=== PATIENT | female | born 1950 | race Caucasian/White ===

== ENCOUNTER 2017-05-11 21:32 | Observation (INO) | payer MEDICARE, OTHER ==
[2017-05-11] MEDS ORDERED: SODIUM CHLORIDE 0.9% 1,000 ML IV STA (22:21)
[2017-05-11] MEDS ORDERED: ONDANSETRON 4 MG/2 ML VIAL IVP STA (22:21)
[2017-05-11] MEDS ORDERED: MORPHINE SULFATE 4 MG/ML SYRINGE IVP STA (22:21)
--- NOTE | 2017-05-11 22:28 | ED ---
Abdominal Pain HPI - General Chief Complaint: Abdominal Pain Stated Complaint: abdominal pain Time Seen by Provider: 05/11/17 22:10 Source: patient Mode of arrival: ambulatory Limitations: no limitations - History of Present Illness Initial Comments: 66-year-old female patient presents to the emergency department today for evaluation of upper abdominal pain and vomiting. Patient does have memory impairment and relies on don't want to provide history. Daughter reports that she has been having diarrhea on and off for the last 6 months. States that she started complaining of the upper abdominal pain approximately a week and a half ago. Patient reports that the pain is in her midepigastric region. States that she attempted to eat today and was started vomiting. States that she's been unable to hold down any food or fluids. She denies radiation of the pain into her back. Denies any constipation or current diarrhea. She denies any known fevers but states that she has been chilled. Patient denies any recent rash, shortness breath, chest pain, back pain, numbness, tingling, dizziness, weakness, hematuria, dysuria, urinary urgency, urinary frequency, headache, visual changes, or any other complaints. - Related Data Home Medications Medication Instructions Recorded Confirmed Doxycycline Hyclate [Vibramycin] 100 mg PO BID 05/11/17 05/11/17 Fluticasone Nasal [place] [Flonase 2 spr EA NOSTRIL DAILY 05/11/17 05/11/17 Nasal [place]] Hydrochlorothiazide 12.5mg Tab 12.5 mg PO DAILY 05/11/17 05/11/17 Hydroxychloroquine Sulfate 200 mg PO AC-BID 05/11/17 05/11/17 [Plaquenil] Levothyroxine Sodium [Synthroid] 112 mcg PO DAILY 05/11/17 05/11/17 Vitamin D3(Unknown Dose) 1 tab PO DAILY 05/11/17 05/11/17 azaTHIOprine [Imuran] 50 mg PO TID 05/11/17 05/11/17 Allergies Allergy/AdvReac Type Severity Reaction Status Date / Time Penicillins Allergy Unknown Verified 05/11/17 23:06 Review of Systems ROS Statement: Those systems with pertinent positive or pertinent negative responses have been documented in the HPI. ROS Other: All systems not noted in ROS Statement are negative. Past Medical History Past Medical History: Hypertension, Rheumatoid Arthritis (RA) Additional Past Medical History / Comment(s): Memory difficulty without diagnosis History of Any Multi-Drug Resistant Organisms: None Reported Past Surgical History: Section, Cholecystectomy Past Psychological History: No Psychological Hx Reported Smoking Status: Never smoker Past Alcohol Use History: None Reported Past Drug Use History: None Reported General Exam Limitations: no limitations General appearance: alert, in no apparent distress, other (This is a well- developed, well-nourished elderly female patient in no acute distress. Vital signs upon presentation are temperature 99.1F, pulse 87, respirations 18, blood pressure 121/60, pulse ox 100% on room air.) Eye exam: Present: normal appearance, PERRL, EOMI. Absent: scleral icterus, conjunctival injection, periorbital swelling ENT exam: Present: normal exam, normal oropharynx, mucous membranes moist Respiratory exam: Present: normal lung sounds bilaterally. Absent: respiratory distress, wheezes, rales, rhonchi, stridor Cardiovascular Exam: Present: regular rate, normal rhythm, normal heart sounds. Absent: systolic murmur, diastolic murmur, rubs, gallop, clicks GI/Abdominal exam: Present: soft, tenderness (Midepigastric tenderness), normal bowel sounds. Absent: distended, guarding, rebound, rigid Neurological exam: Present: alert, oriented X3, CN II-XII intact Psychiatric exam: Present: normal affect, normal mood Skin exam: Present: warm, dry, intact, normal color. Absent: rash Course Vital Signs 05/11/17 05/12/17 21:42 03:09 Temperature 99.1 F 97.4 F L Pulse Rate 87 72 Respiratory 18 18 Rate Blood Pressure 121/60 136/66 O2 Sat by Pulse 100 95 Oximetry Medical Decision Making - Medical Decision Making 66 year-old female patient presented to the emergency department today for complaints of upper abdominal pain and vomiting. Patient was unable to keep anything down throughout the day today. Labs reviewed and did reveal low potassium and elevated lipase. We did give patient fluids. She is still feeling poorly. We will admit her for mild pancreatitis, hypokalemia, and intractable nausea and vomiting. IV fluid resuscitation, IV replacement potassium, and nausea medication will be provided. She'll be admitted to Dr. Tracy. - Lab Data Result diagrams: 05/11/17 22:17 05/11/17 22:17 Lab Results 05/11/17 05/11/17 05/11/17 Range/Units 22:17 22:17 22:17 WBC 4.9 (3.8-10.6) k/uL RBC 5.22 (3.80-5.40) m/uL Hgb 15.7 (11.4-16.0) gm/dL Hct 44.3 (34.0-46.0) % MCV 84.9 (80.0-100.0) fL MCH 30.1 (25.0-35.0) pg MCHC 35.4 (31.0-37.0) g/dL RDW 12.9 (11.5-15.5) % Plt Count 232 (150-450) k/uL Neutrophils % 80 % Lymphocytes % 11 % Monocytes % 5 % Eosinophils % 2 % Basophils % 1 % Neutrophils # 4.0 (1.3-7.7) k/uL Lymphocytes # 0.6 L (1.0-4.8) k/uL Monocytes # 0.3 (0-1.0) k/uL Eosinophils # 0.1 (0-0.7) k/uL Basophils # 0.0 (0-0.2) k/uL Sodium 135 L (137-145) mmol/L Potassium 3.1 L (3.5-5.1) mmol/L Chloride 94 L (98-107) mmol/L Carbon Dioxide 26 (22-30) mmol/L Anion Gap 15 mmol/L BUN 13 (7-17) mg/dL Creatinine 0.70 (0.52-1.04) mg/dL Est GFR (CKD-EPI)AfAm >90 (>60 ml/min/1.73 sqM) Est GFR (CKD-EPI)NonAf >90 (>60 ml/min/1.73 sqM) Glucose 115 H (74-99) mg/dL Calcium 9.9 (8.4-10.2) mg/dL Total Bilirubin 1.8 H (0.2-1.3) mg/dL AST 42 H (14-36) U/L ALT 31 (9-52) U/L Alkaline Phosphatase 92 (38-126) U/L Total Protein 8.4 H (6.3-8.2) g/dL Albumin 4.6 (3.5-5.0) g/dL Amylase 42 (30-110) U/L Lipase 531 H (23-300) U/L Urine Color Yellow Urine Appearance Clear (Clear) Urine pH 6.0 (5.0-8.0) Ur Specific [place] 1.014 (1.001-1.035) Urine Protein 2+ H (Negative) Urine Glucose (UA) Negative (Negative) Urine Ketones 1+ H (Negative) Urine Blood Negative (Negative) Urine Nitrite Negative (Negative) Urine Bilirubin Negative (Negative) Urine Urobilinogen <2.0 (<2.0) mg/dL Ur Leukocyte Esterase Negative (Negative) Urine RBC 1 (0-5) /hpf Urine WBC 10 H (0-5) /hpf Cellular Casts 32 (0) /lpf Hyaline Casts 41 H (0-2) /lpf Urine Mucus Many H (None) /hpf - EKG Data -: EKG Interpreted by Me EKG Comments: EKG obtained at 2243 shows normal sinus rhythm with prolonged QT interval. Ventricular rate of 76, FL interval 164, QRS duration 94, QTC 446, QTc 501. No evidence of ST elevation or depression. Disposition Clinical Impression: Pancreatitis, Intractable vomiting, Hypokalemia, Abdominal pain Disposition: ADMITTED IP TO THIS [facility] Condition: Serious Decision to Admit Reason: Admit from EC Decision Date: 05/12/17 Decision Time: 03:37
[2017-05-11 22:50] LABS: Basophils % (A) 1 %; Eosinophils # (A) 0.1 k/uL (0-0.7); Eosinophils % (A) 2 %; HCT 44.3 % (34.0-46.0); HGB 15.7 gm/dL (11.4-16.0); Lymphocytes # (A) 0.6 k/uL (1.0-4.8); Lymphocytes % (A) 11 %; MCH 30.1 pg (25.0-35.0); MCHC 35.4 g/dL (31.0-37.0); MCV 84.9 fL (80.0-100.0); Mean Platelet Volume 7.9; Monocytes # (A) 0.3 k/uL (0-1.0); Monocytes % (A) 5 %; Neutrophils % (A) 80 %; Platelet Count 232 k/uL (150-450); RBC 5.22 m/uL (3.80-5.40); RDW 12.9 % (11.5-15.5); WBC 4.9 k/uL (3.8-10.6)
[2017-05-11 23:04] LABS: ALT 31 U/L (9-52); AST 42 U/L (14-36); Albumin 4.6 g/dL (3.5-5.0); Alkaline Phosphatase 92 U/L (38-126); Amylase 42 U/L (30-110); Anion Gap 15 mmol/L; Blood Urea Nitrogen 13 mg/dL (7-17); Calcium 9.9 mg/dL (8.4-10.2); Carbon Dioxide 26 mmol/L (22-30); Chloride 94 mmol/L (98-107); Glucose 115 mg/dL (74-99); Lipase 531 U/L (23-300); Potassium 3.1 mmol/L (3.5-5.1); Sodium 135 mmol/L (137-145); Total Bilirubin 1.8 mg/dL (0.2-1.3); Total Protein 8.4 g/dL (6.3-8.2)
--- NOTE | 2017-05-11 23:12 | XR ---
EXAMINATION TYPE: XR KUB DATE OF EXAM: 05/11/2017 COMPARISON: NONE HISTORY: Abdominal pain TECHNIQUE: 2 views FINDINGS: There is no sign of intestinal obstruction or pneumoperitoneum. Fecal pattern is normal. Th ere is no evidence of a mass. There are no pathologic calcifications over the kidneys. Lung bases are clear of consolidation. There are clips from cholecystectomy. IMPRESSION: Nonacute abdomen.
[2017-05-11 23:14] LABS: Appearance,Urine Clear (Clear); Bilirubin,Urine Negative (Negative); Blood,Urine Negative (Negative); Cellular Casts,Urine 32 /lpf (0); Color,Urine Yellow; Glucose,Urine (UA) Negative (Negative); Hyaline Casts,Urine 41 /lpf (0-2); Ketones,Urine 1+ (Negative); Leukocyte Esterase,Urine Negative (Negative); Mucus,Urine Many /hpf; Nitrite,Urine Negative (Negative); Protein,Urine 2+ (Negative); RBC,Urine 1 /hpf (0-5); Specific Gravity,Urine 1.014 (1.001-1.035); Urobilinogen,Urine <2.0 mg/dL (<2.0); WBC,Urine 10 /hpf (0-5)
[2017-05-11] MEDS ORDERED: RX INFO: IV CONTRAST WAS GIVEN 1 EACH MISC MISCELLANE PRN (23:50)
--- NOTE | 2017-05-12 01:12 | CT ---
EXAMINATION TYPE: CT abdomen pelvis w con DATE OF EXAM: 05/12/2017 COMPARISON: NONE HISTORY: mid to upper abd pain CT DLP: 538.00 mGycm Automated exposure control for dose reduction was used. TECHNIQUE: Helical acquisition of images was performed from the lung bases through the pelvis. CONTRAST: Performed without Oral Contrast and with IV Contrast, patient injected with 100 mL of Omnipaque 300. FINDINGS: The lung bases are clear of consolidation. There is no pleural effusion. Heart size is normal. There is no pericardial effusion. There are clips from cholecystectomy. Bile ducts are not dilated. Liver shows no focal defect. Spleen and pancreas appear normal. There is no adrenal mass. Kidneys show satisfactory contrast opacification. There is no hydronephrosi s. Ureters are not dilated. Abdominal aorta is atheromatous. Appendix appears normal. There are diver ticula in the descending colon and sigmoid colon. I see no sign of diverticulitis. There is no ascite s. Small bowel appears normal. There is no retroperitoneal adenopathy. There is spondylotic change in the lumbar spine and more severe at L4-5. I see no compression fractur e. There is focal emphysema in the right lower lobe. IMPRESSION: MILD PULMONARY EMPHYSEMA. ATHEROSCLEROTIC VASCULAR DISEASE. NO SIGN OF ACUTE ABDOMEN AND PELVIS. THER E IS COLONIC DIVERTICULOSIS WITHOUT SIGN OF DIVERTICULITIS.
[2017-05-12] MEDS ORDERED: BENZONATATE 100 MG CAP PO STA (02:40)
--- NOTE | 2017-05-12 03:02 | US ---
EXAMINATION TYPE: US abdomen limited DATE OF EXAM: 05/12/2017 COMPARISON: CLINICAL HISTORY: Pain. Pain. GB removed x several years ago. EXAM MEASUREMENTS: Liver Length: 12.7 cm CBD: 0.5 cm CHD: 0.5 cm Right Kidney: 9.8 x 4.1 x 4.2 cm Pancreas: Appears echogenic Liver: wnl Gallbladder: Surgically absent Evidence for sonographic Foley's sign: neg CBD: wnl CHD: wnl Right Kidney: wnl IMPRESSION: Cholecystectomy. No dilated ducts. No free fluid.
[2017-05-12] MEDS ORDERED: MORPHINE SULFATE 4 MG/ML SYRINGE IV PRN (03:26)
[2017-05-12] MEDS ORDERED: NALOXONE 0.4 MG/ML 1 ML VIAL IV PRN (03:26)
[2017-05-12] MEDS ORDERED: Potassium Replacement Protocol 1 EACH MISC MISCELLANE PRN (03:43)
[2017-05-12] MEDS ORDERED: POTASSIUM CHLORIDE 20 MEQ in WATER FOR INJECTION 1 100ML.BAG IVPB SCH (03:45)
[2017-05-12] MEDS ORDERED: POTASSIUM CHLORIDE 10 MEQ in WATER FOR INJECTION 1 100ML.BAG IVPB SCH (04:00)
[2017-05-12] MEDS: SODIUM CHLORIDE 0.9% 1,000 ML IV SCH ×2 (04:21→18:30)
[2017-05-12] MEDS: POTASSIUM CHLORIDE 10 MEQ in SODIUM CHLORIDE 0.9% 100 ML IV SCH ×7 (04:23→12:08)
--- NOTE | 2017-05-12 04:38 | XR ---
EXAM: XR Chest, 2 Views CLINICAL HISTORY: ITS.REASON XR Reason: Pain TECHNIQUE: Frontal and lateral views of the chest. COMPARISON: No relevant prior studies available. FINDINGS: Lungs: Pulmonary hyperexpansion suggesting emphysema. Linear opacity in the lingula may reflect atelectasis, but difficult to exclude active infiltrate. Clinical correlation is advised. Pleural space: Unremarkable. No pneumothorax. Heart: Unremarkable. No cardiomegaly. Mediastinum: Unremarkable. Bones/joints: Chronic posterior right third rib deformity. Mild vertebral endplate spurring. IMPRESSION: Pulmonary hyperexpansion suggesting emphysema. Linear opacity in the lingula may reflect atelectasis, but difficult to exclude active infiltrate. Clinical correlation is advised.
[2017-05-12 05:41] VITALS: BMI 25.2
[2017-05-12 07:13] LABS: Amylase 32 U/L (30-110); Lipase 507 U/L (23-300)
[2017-05-12] MEDS: IPRATROPIUM-ALBUTEROL 3 ML NEB INHALATION SCH ×5 (08:32→19:30)
[2017-05-12 08:52] LABS: ALT 28 U/L (9-52); AST 32 U/L (14-36); Albumin 3.4 g/dL (3.5-5.0); Alkaline Phosphatase 68 U/L (38-126); Anion Gap 10 mmol/L; Blood Urea Nitrogen 11 mg/dL (7-17); Calcium 8.7 mg/dL (8.4-10.2); Carbon Dioxide 25 mmol/L (22-30); Chloride 102 mmol/L (98-107); Glucose 81 mg/dL (74-99); Potassium 3.4 mmol/L (3.5-5.1); Sodium 137 mmol/L (137-145); Total Bilirubin 1.4 mg/dL (0.2-1.3); Total Protein 6.5 g/dL (6.3-8.2)
[2017-05-12] MEDS ORDERED: POTASSIUM CHLORIDE ER 20 MEQ TAB.ER PO STA (14:34)
[2017-05-12 18:11] LABS: ALT 28 U/L (9-52); AST 29 U/L (14-36); Albumin 3.2 g/dL (3.5-5.0); Alkaline Phosphatase 65 U/L (38-126); Anion Gap 9 mmol/L; Blood Urea Nitrogen 9 mg/dL (7-17); Calcium 8.7 mg/dL (8.4-10.2); Carbon Dioxide 25 mmol/L (22-30); Chloride 104 mmol/L (98-107); Glucose 94 mg/dL (74-99); Potassium 3.5 mmol/L (3.5-5.1); Sodium 138 mmol/L (137-145); Total Bilirubin 1.3 mg/dL (0.2-1.3)
--- NOTE | 2017-05-12 18:12 | HP ---
HISTORY AND PHYSICAL CHIEF COMPLAINTS: Abdominal pain and vomiting. HISTORY OF PRESENT ILLNESS: This 66-year-old woman with a past medical history of hypertension, history of rheumatoid arthritis, history of CVA, TIA, being followed by a primary physician in the [facility], has presented with abdominal pain. The patient is also seen by Dr. Melendrez for the rheumatoid arthritis and right wrist pain exacerbation. Currently the patient is complaining of abdominal pain which is felt in the upper part of the abdomen and vomiting, also. Please note patient had a previous cholecystectomy. Patient came into [facility] and was admitted with features of acute pancreatitis, lipase elevated at 531; amylase was normal. The patient also had multiple evaluations, including abdomen and pelvis CT scan, which showed pulmonary emphysema and no evidence of an acute abdomen. Abdominal ultrasound revealed cholecystectomy; no dilated ducts were noted. There is no history of any fever, rigor, chills. No history of headache, loss of consciousness, seizures. PAST MEDICAL HISTORY: 1. History of CVA. 2. Hypertension. 3. History of rheumatoid arthritis. 4. Memory difficulties. HOME MEDICATIONS: 1. Imuran 50 mg p.o. t.i.d. 2. Vitamin D3 one tablet p.o. daily. 3. Synthroid 112 mcg p.o. daily. 4. Plaquenil 200 mg before meals b.i.d. 5. Hydrochlorothiazide 12.5 mg p.o. daily. 6. Fluticasone 2 sprays daily. 7. Doxycycline 100 mg p.o. b.i.d. ALLERGIES: PENICILLIN. FAMILY HISTORY: History of cancer, cirrhosis and liver cancer. SOCIAL HISTORY: No history of smoking. No history of alcohol intake. REVIEW OF SYSTEMS: ENT: No diminished hearing. No diminished vision. CARDIOVASCULAR SYSTEM: No angina, palpitations. RESPIRATORY SYSTEM: As mentioned earlier. GI: No nausea, vomiting. : No dysuria or retention. NERVOUS SYSTEM: No numbness, weakness. ALLERGY/IMMUNOLOGY: No asthma, hayfever. MUSCULOSKELETAL: As mentioned earlier. HEMATOLOGY/ONCOLOGY: No history of anemia. ENDOCRINE: As mentioned earlier. CONSTITUTIONAL: As mentioned earlier. DERMATOLOGY: Negative. RHEUMATOLOGY: Negative. PSYCHIATRY: As mentioned earlier. PHYSICAL EXAMINATION: Patient is alert, oriented x3. Pulse is 63, blood pressure 100/54, respiration 20, temperature 98 degrees, pulse ox 97% on room air. HEENT: Conjunctivae normal. NECK: No jugular venous distention. CARDIOVASCULAR SYSTEM: S1, S2 muffled. RESPIRATORY SYSTEM: Breath sounds diminished at the bases. No rhonchi. No crackles. ABDOMEN: Soft. Mild diffuse tenderness in the epigastrium present. No guarding. No rigidity. No mass palpable. LEGS: No edema. No swelling. NERVOUS SYSTEM: Higher functions as mentioned earlier. Moves all 4 limbs. No focal motor or sensory deficits. LYMPHATICS: No lymph node palpable in neck, axillae or groin. SKIN: No ulcer, rash, bleeding. JOINTS: Rheumatoid arthritis with deformities present. LABS: Amylase and lipase noted. Sodium 135, potassium 3.1. ASSESSMENT: 1. Abdominal pain and vomiting, possible acute pancreatitis. 2. Hypokalemia. 3. Hyponatremia. 4. Increased AST. 5. History of cholecystectomy. 6. History of rheumatoid arthritis. 7. Hypertension. 8. History of cerebrovascular accident, transient ischemic attack. 9. History of cholecystectomy. 10.FULL CODE. RECOMMENDATIONS AND DISCUSSION: In this 66-year-old woman who presented with multiple complex medical issues, we will monitor the patient closely, continue the current medications, continue with symptomatic treatment. Proton pump inhibitors. I would hold doxycycline, azathioprine at this time. Continue to monitor. Otherwise, repeat labs will be ordered for tomorrow. Amylase and lipase also will be repeated. Gastroenterology consultation. Guarded prognosis. Further recommendations to follow. Dr. Bartholomew will be consulted. MMODL / IJN: [id number] /
[2017-05-13] MEDS: SODIUM CHLORIDE 0.9% 1,000 ML IV SCH ×2 (04:00→13:01)
[2017-05-13] MEDS: LEVOTHYROXINE 112 MCG TAB PO SCH (06:38)
[2017-05-13 07:55] LABS: ALT 26 U/L (9-52); AST 27 U/L (14-36); Albumin 2.8 g/dL (3.5-5.0); Alkaline Phosphatase 58 U/L (38-126); Amylase <30 U/L (30-110); Anion Gap 6 mmol/L; Blood Urea Nitrogen 8 mg/dL (7-17); Calcium 8.6 mg/dL (8.4-10.2); Carbon Dioxide 23 mmol/L (22-30); Chloride 108 mmol/L (98-107); Glucose 74 mg/dL (74-99); Lipase 573 U/L (23-300); Potassium 3.7 mmol/L (3.5-5.1); Sodium 137 mmol/L (137-145); Total Bilirubin 1.2 mg/dL (0.2-1.3); Total Protein 5.6 g/dL (6.3-8.2)
[2017-05-13] MEDS: IPRATROPIUM-ALBUTEROL 3 ML NEB INHALATION SCH ×4 (08:05→21:52)
[2017-05-13] MEDS ORDERED: VITAMIN D3 PO SCH (09:00)
[2017-05-13] MEDS ORDERED: HYDROCHLOROTHIAZIDE 12.5 MG CAP PO SCH (09:00)
[2017-05-13] MEDS: FLUTICASONE 50MCG/SPRAY NASAL 16GM EA NOSTRIL SCH (09:14)
[2017-05-13 10:17] LABS: Basophils % (A) 1 %; Eosinophils # (A) 0.1 k/uL (0-0.7); Eosinophils % (A) 3 %; HCT 34.2 % (34.0-46.0); Lymphocytes # (A) 0.4 k/uL (1.0-4.8); Lymphocytes % (A) 15 %; MCHC 32.9 g/dL (31.0-37.0); Mean Platelet Volume 8.9; Monocytes # (A) 0.2 k/uL (0-1.0); Monocytes % (A) 8 %; Neutrophils # (A) 2.1 k/uL (1.3-7.7); Neutrophils % (A) 72 %; Platelet Count 150 k/uL (150-450); RBC 3.74 m/uL (3.80-5.40); RDW 13.3 % (11.5-15.5); WBC 2.9 k/uL (3.8-10.6)
[2017-05-13 10:26] LABS: HGB 11.2 gm/dL (11.4-16.0); MCV 91.4 fL (80.0-100.0)
--- NOTE | 2017-05-13 10:44 | P.CONS ---
History of Present Illness - Reason for Consult Consult date: 05/13/17 Abdominal pain and possible pancreatitis Requesting physician: Sean Tracy - History of Present Illness 66 year old female history of rheumatoid arthritis, CVA, hypertension, cholecystectomy about 15 years ago. Unsure if patient had gallstones. Patient presented with severe abdominal pain in the upper abdomen nausea vomiting that started 2 days ago. No changes in medications recent travels or changes in diet. Denies fever chills hematemesis hematochezia melena changes in the color of her urine or stool. Admission lipase 531. Amylase 42. Total bilirubin 1.8. AST 42. ALT 31. Alkaline phosphatase 92. Today LFTs have normalized. Amylase less than 30. Lipase 573. No history of pancreatitis or alcoholism. CT abdomen and pelvis reported nondilated bile ducts. No focal liver defect. Pancreas appeared normal. Ultrasound abdomen no dilated ducts. Review of Systems Constitutional: Denies fever, chills, sweats, weight gain, or loss. HEENT: Negative for migraines, blurred vision or loss, earaches, drainage, tinnitus, oral mucosal lesions, dysphagia, or odynophagia. CARDIAC: Hypertension. Negative for chest pain, arrhythmias, or palpitation. RESPIRATORY: Negative for shortness of breath, hemoptysis, cough, or sputum production. GI: See HPI for pertinent findings. : Negative for hematuria, urgency, frequency, polyuria, or dysuria. GYNc: Denies possibility of . Negative vaginal discharge. MUSCULOSKELETAL: Negative for muscle aches, swelling, arthritis, and arthralgias. NEUROLOGIC: History of CVA/TIA.. ENDOCRINE: History of rheumatoid arthritis. Negative for thyroid problems. SKIN: Negative for rash or itching. PSYCHIATRIC: Negative history for depression and anxiety Past Medical History Past Medical History: CVA/TIA, Hypertension, Rheumatoid Arthritis (RA) Additional Past Medical History / Comment(s): Memory difficulty without diagnosis History of Any Multi-Drug Resistant Organisms: None Reported Past Surgical History: Section, Cholecystectomy Past Psychological History: No Psychological Hx Reported Smoking Status: Never smoker Past Alcohol Use History: None Reported Past Drug Use History: None Reported - Past Family History Father Family Medical History: Cancer Additional Family Medical History / Comment(s): cirrhosis, liver ca Mother Family Medical History: Myocardial Infarction ([place]) Medications and Allergies Home Medications Medication Instructions Recorded Confirmed Type Doxycycline Hyclate [Vibramycin] 100 mg PO BID 05/11/17 05/11/17 History Fluticasone Nasal [place] [Flonase 2 spr EA NOSTRIL DAILY 05/11/17 05/11/17 History Nasal [place]] Hydrochlorothiazide 12.5mg Tab 12.5 mg PO DAILY 05/11/17 05/11/17 History Hydroxychloroquine Sulfate 200 mg PO AC-BID 05/11/17 05/11/17 History [Plaquenil] Levothyroxine Sodium [Synthroid] 112 mcg PO DAILY 05/11/17 05/11/17 History Vitamin D3(Unknown Dose) 1 tab PO DAILY 05/11/17 05/11/17 History azaTHIOprine [Imuran] 50 mg PO TID 05/11/17 05/11/17 History Allergies Allergy/AdvReac Type Severity Reaction Status Date / Time Penicillins Allergy Unknown Verified 05/11/17 23:06 Physical Exam Vitals: Vital Signs Temp Pulse Resp BP Pulse Ox 05/13/17 08:00 97.4 F L 61 18 108/68 96 05/13/17 03:59 97.7 F 57 L 18 100/54 95 05/12/17 19:57 98.1 F 66 20 107/67 96 05/12/17 15:28 98 F 63 20 100/54 97 05/12/17 11:55 97.8 F 67 18 108/67 95 Intake and Output 05/12/17 05/13/17 05/13/17 22:59 06:59 14:59 Output Total 500 500 Balance -500 -500 Output: Urine 500 500 Other: # Voids 1 1 # Bowel Movements 2 General appearance: The patient is alert, oriented, in no acute distress. HET: Head is normocephalic and atraumatic. Pupils are equal and reactive. Oropharynx is clear without lesions. Neck: Supple without lymphadenopathy. Trachea midline. Heart: S1 S2. Regular rate and rhythm. Lungs: No crackles or wheezes are heard. Abdomen: Soft, nontender, nondistended with bowel sounds. No peritoneal signs. No palpable organomegaly or masses. Extremities: Normal skin color and turgor. No cyanosis, rash, ulceration, clubbing, or edema. Radial and pedal pulses are 2/4 bilaterally. Neurological: No focal deficits. Strength and sensation are grossly intact. Results CBC & Chem 7: 05/13/17 06:51 05/13/17 06:51 Labs: Abnormal Lab Results - Last 24 Hours (Table) 05/12/17 05/13/17 05/13/17 Range/Units 17:41 06:51 06:51 WBC 2.9 L (3.8-10.6) k/uL RBC 3.74 L (3.80-5.40) m/uL Hgb 11.2 L D (11.4-16.0) gm/dL Lymphocytes # 0.4 L (1.0-4.8) k/uL Chloride 108 H (98-107) mmol/L Total Protein 6.0 L 5.6 L (6.3-8.2) g/dL Albumin 3.2 L 2.8 L (3.5-5.0) g/dL Amylase <30 L (30-110) U/L Lipase 573 H (23-300) U/L CT scan - abdomen: report reviewed (Dr. Bartholomew) US - abdomen: report reviewed (Dr. Bartholomew) Assessment and Plan (1) Abdominal pain Narrative/Plan: 66-year-old female with a history of rheumatoid arthritis present with acute upper abdominal pain nausea vomiting 2 days with mild elevation of liver enzymes and mild elevation of lipase possible pancreatitis. Etiology of elevated liver enzymes and pancreatic enzymes is unclear. Underlying autoimmune pancreatitis cannot be entirely excluded. Possible passage of small microlithiasis cannot be excluded. Current Visit: Yes Status: Acute Code(s): R10.9 - UNSPECIFIED ABDOMINAL PAIN SNOMED Code(s): 05153992 (2) Elevated liver enzymes Current Visit: Yes Status: Acute Code(s): R74.8 - ABNORMAL LEVELS OF OTHER SERUM ENZYMES SNOMED Code(s): 848955918 (3) Elevated lipase Current Visit: Yes Status: Acute Code(s): R74.8 - ABNORMAL LEVELS OF OTHER SERUM ENZYMES SNOMED Code(s): 445573568 (4) History of rheumatoid arthritis Current Visit: Yes Status: Acute Code(s): Z87.39 - PERSONAL HISTORY OF DISEASES OF THE MS SYS AND CONN TISS SNOMED Code(s): 967972821 Plan: 1. Abdominal pain has resolved. Advance diet. Will obtain triglycerides, IgG 1-4 subclasses as well as ARCHANA profile for evaluation of autoimmune pancreatitis. 2. Follow up in GI office after discharge for reevaluation. Discharge per medicine. Thank you for this kind referral and the opportunity to participate in the care of your patient. This consultation was discussed with Dr. Bartholomew. The impression and plan of care have been directed as dictated.
[2017-05-13] MEDS ORDERED: MORPHINE ORAL SOLN 10 MG/5 ML CUP PO PRN (15:36)
[2017-05-13 23:48] VITALS: RESP 18
[2017-05-14] MEDS: SODIUM CHLORIDE 0.9% 1,000 ML IV SCH (06:31)
[2017-05-14] MEDS: LEVOTHYROXINE 112 MCG TAB PO SCH (06:31)
[2017-05-14 07:38] LABS: Basophils % (A) 1 %; Eosinophils # (A) 0.2 k/uL (0-0.7); Eosinophils % (A) 4 %; HCT 33.5 % (34.0-46.0); HGB 11.2 gm/dL (11.4-16.0); Lymphocytes # (A) 0.8 k/uL (1.0-4.8); Lymphocytes % (A) 19 %; MCH 29.6 pg (25.0-35.0); MCHC 33.4 g/dL (31.0-37.0); MCV 88.7 fL (80.0-100.0); Mean Platelet Volume 7.7; Monocytes # (A) 0.3 k/uL (0-1.0); Monocytes % (A) 6 %; Neutrophils # (A) 2.8 k/uL (1.3-7.7); Neutrophils % (A) 70 %; Platelet Count 181 k/uL (150-450); RBC 3.77 m/uL (3.80-5.40); RDW 13.3 % (11.5-15.5); WBC 4.1 k/uL (3.8-10.6)
[2017-05-14] MEDS: FLUTICASONE 50MCG/SPRAY NASAL 16GM EA NOSTRIL SCH (08:00)
[2017-05-14] MEDS: IPRATROPIUM-ALBUTEROL 3 ML NEB INHALATION SCH ×3 (08:06→15:51)
[2017-05-14 08:17] LABS: Amylase <30 U/L (30-110); Anion Gap 7 mmol/L; Blood Urea Nitrogen 4 mg/dL (7-17); Calcium 8.7 mg/dL (8.4-10.2); Carbon Dioxide 27 mmol/L (22-30); Chloride 107 mmol/L (98-107); Glucose 79 mg/dL (74-99); Lipase 417 U/L (23-300); Potassium 3.6 mmol/L (3.5-5.1); Sodium 141 mmol/L (137-145)
[2017-05-14 10:43] LABS: IgG Subclass 3 43.9 mg/dL (11.0-85.0); IgG Subclass 4 30.3 mg/dL (3.0-175.0)
--- NOTE | 2017-05-14 10:56 | P.PN ---
Subjective Progress Note Date: 05/14/17 Principal diagnosis: Abdominal pain 66-year-old female admitted with acute abdominal pain mild elevation of lipase possible pancreatitis. Presents he feels better. ARCHANA screen negative. Triglycerides 67. Tolerating regular diet. Abdominal pain resolved. Lipase improving 417. Afebrile. Objective - Vital Signs Vital signs: Vital Signs Temp 98.2 F 05/14/17 08:34 Pulse 94 05/14/17 08:34 Resp 16 05/14/17 08:34 BP 110/64 05/14/17 08:34 Pulse Ox 96 05/14/17 08:34 Intake & Output 05/13/17 05/14/17 05/14/17 18:59 06:59 18:59 Intake Total 960 Output Total 1 Balance -1 960 Intake: Oral 960 Output: Stool 1 Other: # Voids 1 1 1 - Exam General appearance: The patient is alert, oriented, in no acute distress. HET: Head is normocephalic and atraumatic. Pupils are equal and reactive. Oropharynx is clear without lesions. Neck: Supple without lymphadenopathy. Trachea midline. Heart: S1 S2. Regular rate and rhythm. Lungs: No crackles or wheezes are heard. Abdomen: Soft, nontender, nondistended with bowel sounds. No peritoneal signs. No palpable organomegaly or masses. Extremities: Normal skin color and turgor. No cyanosis, rash, ulceration, clubbing, or edema. Radial and pedal pulses are 2/4 bilaterally. Neurological: No focal deficits. Strength and sensation are grossly intact. - Labs CBC & Chem 7: 05/14/17 07:23 05/14/17 07:23 Labs: Abnormal Lab Results - Last 24 Hours (Table) 05/14/17 05/14/17 Range/Units 07:23 07:23 RBC 3.77 L (3.80-5.40) m/uL Hgb 11.2 L (11.4-16.0) gm/dL Hct 33.5 L (34.0-46.0) % Lymphocytes # 0.8 L (1.0-4.8) k/uL BUN 4 L (7-17) mg/dL Amylase <30 L (30-110) U/L Lipase 417 H (23-300) U/L Assessment and Plan (1) Abdominal pain Narrative/Plan: 66-year-old female with a history of rheumatoid arthritis present with acute upper abdominal pain nausea vomiting 2 days with mild elevation of liver enzymes and mild elevation of lipase possible pancreatitis. Etiology of elevated liver enzymes and pancreatic enzymes is unclear. Underlying autoimmune pancreatitis cannot be entirely excluded. Possible passage of small microlithiasis cannot be excluded. Current Visit: Yes Status: Acute Code(s): R10.9 - UNSPECIFIED ABDOMINAL PAIN SNOMED Code(s): 79252730 (2) Elevated liver enzymes Current Visit: Yes Status: Acute Code(s): R74.8 - ABNORMAL LEVELS OF OTHER SERUM ENZYMES SNOMED Code(s): 301781683 (3) Elevated lipase Current Visit: Yes Status: Acute Code(s): R74.8 - ABNORMAL LEVELS OF OTHER SERUM ENZYMES SNOMED Code(s): 262325261 (4) History of rheumatoid arthritis Current Visit: Yes Status: Acute Code(s): Z87.39 - PERSONAL HISTORY OF DISEASES OF THE MS SYS AND CONN TISS SNOMED Code(s): 170792710 Plan: 1. Abdominal pain has resolved. No further workup at this time. 2. Follow up in GI office after discharge for reevaluation. Discharge per medicine. Assessment and plan a care discussed with Dr. Bartholomew
--- NOTE | 2017-05-14 13:16 | P.PN ---
Subjective Progress Note Date: 05/13/17 Principal diagnosis: Acute pancreatitis 66 year old female history of rheumatoid arthritis, CVA, hypertension, cholecystectomy about 15 years ago presented with severe abdominal pain in the upper abdomen nausea vomiting that started 2 days ago. No changes in medications recent travels or changes in diet. Denies fever chills hematemesis hematochezia melena changes in the color of her urine or stool. Admission lipase 531. Amylase 42. Total bilirubin 1.8. AST 42. ALT 31. Alkaline phosphatase 92. Today LFTs have normalized. Amylase less than 30. Lipase 573. No history of pancreatitis or alcoholism. CT abdomen and pelvis reported nondilated bile ducts. No focal liver defect. Pancreas appeared normal. Ultrasound abdomen no dilated ducts. 05/13/2017 Patient's abdominal pain slightly improved. Lipase level is around 500. Otherwise patient was started on liquid diet and advance as tolerated. Autoimmune workup for appendicitis was ordered as per GI. Otherwise symptomatically improving. Patient does have some memory loss and cognitive impairment and keeps forgetting things and unable to take her medications at home on regular basis All other review of systems negative for the above Current medications reviewed Objective - Vital Signs Vital signs: Vital Signs Temp 97.8 F 05/13/17 11:32 Pulse 64 05/13/17 17:00 Resp 16 05/13/17 11:32 BP 113/56 05/13/17 11:32 Pulse Ox 96 05/13/17 11:32 Intake & Output 05/13/17 05/13/17 05/14/17 06:59 18:59 06:59 Output Total 1000 1 Balance -1000 -1 Output: Urine 1000 Stool 1 Other: # Voids 1 1 - Exam PHYSICAL EXAMINATION: Patient is lying in the bed comfortably, no acute distress, awake alert and oriented. But forgetful. HEENT: Normocephalic. Neck is supple. Pupils reactive. Nostrils clear. Oral cavity is moist. Ears reveal no drainage. Neck reveals no JVD, carotid bruits, or thyromegaly. CHEST EXAMINATION: Trachea is central. Symmetrical expansion. Lung avelar clear to auscultation and percussion. CARDIAC: Normal S1, S2 with no gallops. No murmurs ABDOMEN: Soft. Bowel sounds normal. No organomegaly. No abdominal bruits. Extremities: reveal no edema. No clubbing or cyanosis Neurologically awake, alert, oriented x3 with well-coordinated movements. No focal deficits noted Skin: No rash or skin lesions. Psychiatric: Coperative. Nonsuicidal Musculoskeletal: No joint swelling or deformity. Normal range of motion. - Labs CBC & Chem 7: 05/14/17 07:23 05/14/17 07:23 Labs: Abnormal Lab Results - Last 24 Hours (Table) 05/13/17 05/13/17 Range/Units 06:51 06:51 WBC 2.9 L (3.8-10.6) k/uL RBC 3.74 L (3.80-5.40) m/uL Hgb 11.2 L D (11.4-16.0) gm/dL Lymphocytes # 0.4 L (1.0-4.8) k/uL Chloride 108 H (98-107) mmol/L Total Protein 5.6 L (6.3-8.2) g/dL Albumin 2.8 L (3.5-5.0) g/dL Amylase <30 L (30-110) U/L Lipase 573 H (23-300) U/L Assessment and Plan Assessment: Abdominal pain with nausea and vomiting and elevated lipase level. Possible acute pancreatitis Nausea vomiting improved No history of alcohol use Rheumatoid arthritis History of cholecystectomy Short-term memory loss History of CVA/TIA Hypertension DVT prophylaxis Plan: Patient will be continued on IV hydration and pain management. Advance diet as tolerated. GI is following. Recommend outpatient follow-up for further further workup for autoimmune pancreatitis. Continue to follow closely. Further recommendations based on the clinical course. Time with Patient: Greater than 30
[2017-05-14 19:32] VITALS: BP 110/64; PULSE 85; TEMP 98.2
--- NOTE | 2017-05-20 19:30 | P.DS ---
Providers Date of admission: 05/12/17 03:18 Expected date of discharge: 05/14/17 Attending physician: Sean Tracy Primary care physician: Etienne High Hospital Course: Discharge diagnosis Abdominal pain with nausea and vomiting and elevated lipase level. Likely due to mild acute pancreatitis Nausea vomiting improved No history of alcohol use Rheumatoid arthritis History of cholecystectomy History of Short-term memory loss History of CVA/TIA Hypertension DVT prophylaxis Hospital course 66 year old female history of rheumatoid arthritis, CVA, hypertension, cholecystectomy about 15 years ago presented with severe abdominal pain in the upper abdomen nausea vomiting that started 2 days ago. No changes in medications recent travels or changes in diet. Denies fever chills hematemesis hematochezia melena changes in the color of her urine or stool. Admission lipase 531. Amylase 42. Total bilirubin 1.8. AST 42. ALT 31. Alkaline phosphatase 92. Today LFTs have normalized. Amylase less than 30. Lipase 573. No history of pancreatitis or alcoholism. CT abdomen and pelvis reported nondilated bile ducts. No focal liver defect. Pancreas appeared normal. Ultrasound abdomen no dilated ducts. 05/13/2017 Patient's abdominal pain slightly improved. Lipase level is around 500. Otherwise patient was started on liquid diet and advance as tolerated. Autoimmune workup for appendicitis was ordered as per GI. Otherwise symptomatically improving. Patient does have some memory loss and cognitive impairment and keeps forgetting things and unable to take her medications at home on regular basis, 05/14/2017 Abdominal pain is much improved today. Patient is able to tolerate diet. Patient is cleared from discharge standpoint. GI recommends a follow-up in the clinic for autoimmune workup and reports. Patient was seen by [facility] and Social work for home situation evaluation. Patient is stable to be discharged to home with home health care. I did discuss with her son by telephone. PHYSICAL EXAMINATION: Patient is lying in the bed comfortably, no acute distress, awake alert and oriented.. HEENT: Normocephalic. Neck is supple. Pupils reactive. Nostrils clear. Oral cavity is moist. Ears reveal no drainage. Neck reveals no JVD, carotid bruits, or thyromegaly. CHEST EXAMINATION: Trachea is central. Symmetrical expansion. Lung avelar clear to auscultation and percussion. CARDIAC: Normal S1, S2 with no gallops. No murmurs ABDOMEN: Soft. Bowel sounds normal. No organomegaly. No abdominal bruits. Extremities: reveal no edema. No clubbing or cyanosis Neurologically awake, alert, oriented x3 with well-coordinated movements. No focal deficits noted Skin: No rash or skin lesions. Psychiatric: Coperative. Nonsuicidal Musculoskeletal: No joint swelling or deformity. Normal range of motion. Vital Signs 05/11/17 05/12/17 05/12/17 21:42 03:09 04:23 Temperature 99.1 F 97.4 F L Pulse Rate 87 72 86 Pulse Rate [ Pulse Oximetery ] Respiratory 18 18 18 Rate Blood Pressure 121/60 136/66 113/56 Blood Pressure [Left Arm] O2 Sat by Pulse 100 95 96 Oximetry 05/12/17 05/12/17 05/12/17 04:58 08:05 11:55 Temperature 97.5 F L 97.6 F 97.8 F Pulse Rate Pulse Rate [ 72 61 67 Pulse Oximetery ] Respiratory 18 18 18 Rate Blood Pressure Blood Pressure 117/66 97/61 108/67 [Left Arm] O2 Sat by Pulse 94 L 97 95 Oximetry 05/12/17 05/12/17 05/13/17 15:28 19:57 03:59 Temperature 98 F 98.1 F 97.7 F Pulse Rate Pulse Rate [ 63 66 57 L Pulse Oximetery ] Respiratory 20 20 18 Rate Blood Pressure Blood Pressure 100/54 107/67 100/54 [Left Arm] O2 Sat by Pulse 97 96 95 Oximetry 05/13/17 05/13/17 05/13/17 08:00 11:32 12:35 Temperature 97.4 F L 97.8 F Pulse Rate 60 Pulse Rate [ 61 55 L Pulse Oximetery ] Respiratory 18 16 Rate Blood Pressure Blood Pressure 108/68 113/56 [Left Arm] O2 Sat by Pulse 96 96 Oximetry 05/13/17 05/13/17 05/13/17 12:47 16:46 17:00 Temperature Pulse Rate 64 64 64 Pulse Rate [ Pulse Oximetery ] Respiratory Rate Blood Pressure Blood Pressure [Left Arm] O2 Sat by Pulse Oximetry 05/13/17 05/13/17 05/13/17 17:27 20:28 21:53 Temperature 97.4 F L 97.8 F Pulse Rate 72 Pulse Rate [ 93 74 Pulse Oximetery ] Respiratory 20 16 Rate Blood Pressure Blood Pressure 91/51 102/56 [Left Arm] O2 Sat by Pulse 98 96 Oximetry 05/13/17 05/13/17 05/14/17 22:04 23:47 08:08 Temperature 97.5 F L Pulse Rate 74 78 Pulse Rate [ 79 Pulse Oximetery ] Respiratory 18 Rate Blood Pressure Blood Pressure 103/52 [Left Arm] O2 Sat by Pulse 96 Oximetry 05/14/17 05/14/17 05/14/17 08:17 08:34 12:37 Temperature 98.2 F Pulse Rate 78 85 Pulse Rate [ 94 Pulse Oximetery ] Respiratory 16 18 Rate Blood Pressure Blood Pressure 110/64 [Left Arm] O2 Sat by Pulse 96 Oximetry 05/14/17 12:46 Temperature Pulse Rate 85 Pulse Rate [ Pulse Oximetery ] Respiratory Rate Blood Pressure Blood Pressure [Left Arm] O2 Sat by Pulse Oximetry Total time taken greater than 35 minutes including 18 minutes for counseling and coordination of care. Patient Condition at Discharge: Stable Plan - Discharge Summary New Discharge Prescriptions: Continue Levothyroxine Sodium [Synthroid] 112 mcg PO DAILY Hydroxychloroquine Sulfate [Plaquenil] 200 mg PO AC-BID azaTHIOprine [Imuran] 50 mg PO TID Fluticasone Nasal [place] [Flonase Nasal [place]] 2 spr EA NOSTRIL DAILY Vitamin D3(Unknown Dose) 1 tab PO DAILY Discontinued Hydrochlorothiazide 12.5mg Tab 12.5 mg PO DAILY Doxycycline Hyclate [Vibramycin] 100 mg PO BID Discharge Medication List Fluticasone Nasal [place] [Flonase Nasal [place]] 2 spr EA NOSTRIL DAILY 05/11/17 [ History] Hydroxychloroquine Sulfate [Plaquenil] 200 mg PO AC-BID 05/11/17 [History] Levothyroxine Sodium [Synthroid] 112 mcg PO DAILY 05/11/17 [History] Vitamin D3(Unknown Dose) 1 tab PO DAILY 05/11/17 [History] azaTHIOprine [Imuran] 50 mg PO TID 05/11/17 [History] Follow up Appointment(s)/Referral(s): Irina Bartholomew MD [STAFF PHYSICIAN] - 06/11/17 3:30 pm Etienne High MD [Primary Care Provider] - 1-2 days Activity/Diet/Wound Care/Special Instructions: [facility] - [phone] OK TO DISCHARGE HOME, FOLLOW UP SOONER FOR WORSENING ABDOMINAL PAIN, PROBLEMS OR CONCERNS. Discharge Disposition: HOME WITH HOME HEALTH SERVICES
== END 2017-05-14 17:13 | disposition home health service (06) ==
LOC: EC 21:32 → 4MS4W 05-12 03:18 → 6PED 05-12 04:25
PROVIDERS: ADMIT Hospitalist; ATTEND Hospitalist
DX: R10.10 Upper abdominal pain, unspecified (principal); R11.2 Nausea with vomiting, unspecified; M06.9 Rheumatoid arthritis, unspecified; I10 Essential (primary) hypertension; R74.8 Abnormal levels of other serum enzymes; E87.1 Hypo-osmolality and hyponatremia; E87.6 Hypokalemia; R74.0 Nonspecific elevation of levels of transaminase and lactic acid dehydrogenase [LDH]; M25.531 Pain in right wrist; R41.3 Other amnesia; Z79.899 Other long term (current) drug therapy; Z79.51 Long term (current) use of inhaled steroids; Z88.0 Allergy status to penicillin; Z86.73 Personal history of transient ischemic attack (TIA), and cerebral infarction without residual deficits; Z90.49 Acquired absence of other specified parts of digestive tract; Z80.0 Family history of malignant neoplasm of digestive organs; Z83.79 Family history of other diseases of the digestive system; Z82.49 Family history of ischemic heart disease and other diseases of the circulatory system
CPT/HCPCS: 99285 ×2; 96374 ×2; 96375 ×2; 96361 ×9; 36415; 94640 ×4; 93005; 80053 ×3; 80048; 82150 ×4; 83690 ×4; 83735; 84132; 84478; 85025 ×3; 81001; 82787; 86038; 71046; 74018; 76705; 74177; G0378 ×3; J2270; J2405; J3480; Q9967

== ENCOUNTER → 2017-06-19 | Outpatient (CLI) | payer MEDICARE, OTHER ==
--- NOTE | 2017-06-19 16:40 | EEG ---
ELECTROENCEPHALOGRAM REPORT DATE OF SERVICE: 06/19/2017 REASON FOR TESTING: Recurrent altered mental status and word-finding difficulties. There is also history of memory loss. DESCRIPTION OF THE PROCEDURE: This EEG was performed using a 21-channel digital electroencephalograph, following international 10-20 system. DESCRIPTION OF THE RECORDING: From the beginning of the tracing, and with the patient's eyes closed, the background rhythm was mostly consisting of 9 Hz alpha frequency in the posterior occipital leads. No obvious asymmetry is seen. Photic stimulation was performed with a minimal driving response seen. No pathological waves were elicited. Hyperventilation was not performed. The patient does reach stage II of sleep during the tracing and occasional sleep spindles are seen. Muscle artifacts and movement artifacts are seen. No epileptiform discharges are noticed. Her EKG lead showed a regular rate and rhythm. INTERPRETATION: This asleep and awake EEG can be considered within normal limits. There is no asymmetry seen. No epileptiform discharges were noticed. The absence of epileptiform discharges does not rule out the diagnosis of epilepsy; therefore clinical correlation is recommended. Thank you for allowing me to participate in the care of your patient. If you have any questions, please feel free to contact me. MMODL / IJN: [id number] /
== END | disposition home or self-care (01) ==
LOC: NEUROMAIN 12:23
PROVIDERS: ATTEND Psychiatry & Neurology Neurology
DX: G40.919 Epilepsy, unspecified, intractable, without status epilepticus (principal); R41.3 Other amnesia
CPT/HCPCS: 95816

== ENCOUNTER → 2017-06-23 | Outpatient (CLI) | payer MEDICARE, OTHER ==
--- NOTE | 2017-06-23 11:59 | MR ---
EXAMINATION TYPE: MR brain wo con DATE OF EXAM: 06/23/2017 COMPARISON: NONE HISTORY: Memory loss/Confusion / CVA TECHNIQUE: Multiplanar, multisequence imaging of the brain and brainstem is performed without IV cont rast. FINDINGS: Diffusion weighted images demonstrate no evidence of a recent infarct or other diffusion abnormality. There is no worrisome extraaxial fluid collection. There is mild diffuse ventricular and sulcal promi nence consistent with mild diffuse age-related cerebral atrophy. There are scattered multifocal areas of T2 hyperintensity seen throughout the deep and periventricular white matter. Approximately 60-80 scattered small lesions are present. Lesions are nonspecific in appearance and distribution. Midline structures demonstrate normal morphology. The craniocervical junction appears within normal limits. Normal vascular flow voids are present. The visualized sinuses are clear and the globes are i ntact. IMPRESSION: 1. No evidence of a recent infarct. 2. There is mild diffuse age-related cerebral atrophy and moderate to advanced nonspecific white fito er changes most likely on basis of product of chronic small vessel ischemic change.
== END | disposition home or self-care (01) ==
LOC: RADMRIMAIN 10:40
PROVIDERS: ATTEND Psychiatry & Neurology Neurology
DX: G31.1 Senile degeneration of brain, not elsewhere classified (principal); R90.89 Other abnormal findings on diagnostic imaging of central nervous system; I63.9 Cerebral infarction, unspecified
CPT/HCPCS: 70551

== ENCOUNTER 2017-07-03 09:23 | Day surgery (SDC) | payer MEDICARE, OTHER ==
[2017-07-01 13:01] VITALS: BMI 22.8
[~2017-07-03 09:23] MED LIST: LACTATED RINGERS 1,000 ML IV SCH
[2017-07-03 09:45] VITALS: RESP 16; TEMP 98.7
[2017-07-03] MEDS ORDERED: LIDOCAINE 1% 20 ML VIAL (10MG/ML) FOR IV START INTRADERMA ONE (09:52)
[2017-07-03] MEDS ORDERED: fentaNYL (PF) 50 MCG/ML 2 ML AMP ONE (10:27)
[2017-07-03] MEDS ORDERED: PROPOFOL 10 MG/ML 20 ML VIAL IV ONE (10:27)
[2017-07-03] MEDS ORDERED: MIDAZOLAM 2 MG/2 ML VIAL ONE (10:27)
--- NOTE | 2017-07-03 10:51 | P.PCN ---
Date of Procedure: 07/03/17 Procedure(s) Performed: BRIEF HISTORY: Patient is a 66-year-old pleasant white female, scheduled for an elective colonoscopy as a part of evaluation of chronic diarrhea for the last several months duration. She as well as elevated 2-3 day which are loose in consistency but no blood in the stool. She never had a colonoscopy in the past. PROCEDURE PERFORMED: Colonoscopy with random biopsies. PREOPERATIVE DIAGNOSIS: Chronic diarrhea Diarrhea. IV sedation per Anesthesia. PROCEDURE: After informed consent was obtained, the patient, was brought into the endoscopy unit. IV sedation was administered by Anesthesia under continuous monitoring. Digital rectal examination was normal. Initially the Olympus CF- 160 flexible video colonoscope was then inserted in the rectum, gradually advanced into the cecum without any difficulty. Careful examination was performed as the scope was gradually being withdrawn. Ileocecal valve and the appendiceal orifice were visualized and appeared normal. Prep was excellent. Mucosa of the cecum, ascending colon, transverse colon, descending colon, sigmoid colon, and rectum appeared normal. Scattered sigmoidal reticulosis seen. Retroflexion was performed in the rectum and small internal hemorrhoids were seen. The patient tolerated the procedure well. IMPRESSION: Normal-appearing colon from rectum to cecum with no evidence of colorectal neoplasia . Scattered sigmoid diverticulosis. RECOMMENDATIONS: Findings of this examination were discussed with the patient as well as her family. She was advised to follow with the biopsy results. She can have a repeat screening colonoscopy in 10 years
[2017-07-03 10:54] VITALS: BP 121/79; PULSE 79
== END 2017-07-03 11:31 | disposition home or self-care (01) ==
LOC: ORWHC2ENDO 09:23
PROVIDERS: ATTEND Internal Medicine Gastroenterology
DX: K57.30 Diverticulosis of large intestine without perforation or abscess without bleeding (principal); K64.8 Other hemorrhoids; M06.9 Rheumatoid arthritis, unspecified; I10 Essential (primary) hypertension; Z86.73 Personal history of transient ischemic attack (TIA), and cerebral infarction without residual deficits; Z79.82 Long term (current) use of aspirin; Z79.890 Hormone replacement therapy; Z79.51 Long term (current) use of inhaled steroids; Z79.899 Other long term (current) drug therapy; Z88.0 Allergy status to penicillin
CPT/HCPCS: 88305; 45380; J2250; J3010; J2704

== ENCOUNTER → 2017-08-25 | Outpatient (CLI) | payer MEDICARE, OTHER ==
[2017-08-25 16:18] LABS: T4, Free (Free Thyroxine) 1.5 ng/dL (0.78-2.19)
== END | disposition home or self-care (01) ==
LOC: LABWHC1 14:24
PROVIDERS: ATTEND Family Medicine
DX: E03.9 Hypothyroidism, unspecified (principal)
CPT/HCPCS: 36415; 84439; 84443

== ENCOUNTER → 2017-10-15 | Outpatient (CLI) | payer MEDICARE, OTHER ==
--- NOTE | 2017-10-15 10:50 | US ---
EXAMINATION TYPE: US thyroid st tissue head/neck DATE OF EXAM: 10/15/2017 COMPARISON: NONE CLINICAL HISTORY: E03.9 HYPOTHYROIDISM. GLAND SIZE: Right Lobe: 5.7 x 1.6 x 1.4 cm Overall Parenchyma: heterogenous Left Lobe: 4.9 x 1.3 x 1.4 cm Overall Parenchyma: heterogeneous Isthmus Thickness: 0.3 NODULES: radhika thyroid heterogenous RIGHT: # of nodules measured on right: 0 LEFT: # of nodules measured on left: 0 ISTHMUS: # of nodules measured in the isthmus: 0 Bilateral neck scanned, no evidence of lymphadenopathy. Heterogeneous thyroid gland upper limits of normal in size without discrete nodule on images saved. IMPRESSION: As above
== END ==
LOC: RADUSWWP 10:01
PROVIDERS: ATTEND Family Medicine
DX: E03.9 Hypothyroidism, unspecified (principal)
CPT/HCPCS: 76536

== ENCOUNTER 2018-07-10 08:56 | Day surgery (SDC) | payer MEDICARE, OTHER ==
[2018-07-09 09:16] VITALS: BMI 22.8
[2018-07-10 10:06] VITALS: TEMP 98.8
[2018-07-10] MEDS ORDERED: LACTATED RINGERS 1,000 ML IV ONE (10:10)
[2018-07-10] MEDS ORDERED: LIDOCAINE 1% 20 ML VIAL (10MG/ML) FOR IV START INTRADERMA ONE (10:10)
[2018-07-10] MEDS ORDERED: PROPOFOL 10 MG/ML 20 ML VIAL IV ONE (10:59)
--- NOTE | 2018-07-10 11:12 | P.PCN ---
Date of Procedure: 07/10/18 Procedure(s) Performed: BRIEF HISTORY: Patient is a 67-year-old, pleasant, female, scheduled for an upper endoscopy as a part of value should of epigastric pain and anemia.. PROCEDURE PERFORMED: Esophagogastroduodenoscopy with biopsy. PREOPERATIVE DIAGNOSIS: Chronic epigastricpain/anemia. IV sedation per anesthesia. PROCEDURE: After informed consent was obtained, the patient was brought into the endoscopy unit. IV sedation was administered by Anesthesia under continuous monitoring. Initially the Olympus GIF-140 video endoscope was inserted into the mouth. Esophagus intubated without any difficulty. It was gradually advanced into the stomach and duodenum and carefully examined. The bulb and the second part of the duodenum appeared normal. Since were done from the duodenum to evaluate for anemia. The scope at this time was withdrawn to the stomach, adequately insufflated with air, and upon careful examination, mucosa of the antrum, body, cardia had diffuse gastritis and multiple biopsies were done from this area. The fundus appeared normal. The scope was then withdrawn into the esophagus. The GE junction was located at 37 cm from the incisors. small sliding-type hiatal hernia noted. The esophagus appeared normal. There were no erosions or ulcerations seen and the patient tolerated the procedure well. IMPRESSION: 1. [id number] diffuse gastritis 2. Small sliding Hiatal hernia. RECOMMENDATIONS: The findings of this examination were discussed with the patient as well as a her family. She will follow with the biopsy results. She was advised to start on Prilosec 20 mg daily and follow antireflux measures..
[2018-07-10 11:22] VITALS: RESP 18
[2018-07-10 12:03] VITALS: BP 115/74; PULSE 84
== END 2018-07-10 11:58 | disposition home or self-care (01) ==
LOC: ORWHC2ENDO 08:56
PROVIDERS: ATTEND Internal Medicine Gastroenterology
DX: K29.50 Unspecified chronic gastritis without bleeding (principal); K44.9 Diaphragmatic hernia without obstruction or gangrene; Z88.0 Allergy status to penicillin; I10 Essential (primary) hypertension; E07.9 Disorder of thyroid, unspecified; M06.9 Rheumatoid arthritis, unspecified; Z79.899 Other long term (current) drug therapy; Z79.82 Long term (current) use of aspirin; Z79.890 Hormone replacement therapy
CPT/HCPCS: 88305; 43239; J2704

== ENCOUNTER → 2018-10-20 | Outpatient (CLI) | payer MEDICARE, OTHER ==
--- NOTE | 2018-10-20 09:03 | US ---
EXAMINATION TYPE: US duplex aorta DATE OF EXAM: 10/20/2018 COMPARISON: CT May 12, 2017 CLINICAL HISTORY: Abd pain R10.9. Pulsatile mass, rule out AAA EXAM MEASUREMENTS: Abdominal Aorta: Proximal: 2.2 x 2.1cm Mid: 1.8 x 1.5cm Distal: 1.4 x 1.2cm Bifurcation: RT: 1.0 x 0.8cm LT: 0.9 x 0.7cm No evidence of AAA. Calcifications noted throughout aorta Aorta is seen through the bifurcation without aneurysmal change. IMPRESSION: No ultrasound evidence for AAA. Findings correlate with CT from one year earlier.
== END | disposition home or self-care (01) ==
LOC: RADUSWWP 08:25
PROVIDERS: ATTEND Internal Medicine Rheumatology
DX: R10.9 Unspecified abdominal pain (principal)
CPT/HCPCS: 93979

== ENCOUNTER → 2019-12-13 | Outpatient (CLI) | payer MEDICARE, OTHER ==
--- NOTE | 2019-12-14 07:59 | CT ---
EXAMINATION TYPE: CT brain wo con DATE OF EXAM: 12/13/2019 COMPARISON: None INDICATION: Memory loss, dementia DLP: 1079 mGycm, Automated exposure control for dose reduction was used. CONTRAST: None CT of the brain is performed utilizing 3 mm thick sections through the posterior fossa and 3 mm thick sections through the remaining calvarium. Study is performed within 24 hours of arrival to the hosp ital. No abnormal hyperdensity is present to suggest an acute intracranial hemorrhage. No mass lesion is evident. No acute infarcts are evident. Some minimal periventricular white matter hypodensity may be present, likely on the basis of mild chronic white matter ischemic type changes. Ventricles and sulci are appropriate for the patient age. Extra-axial spaces appear normal. Paranasal sinuses and mastoid air cells within the [id number] are clear. IMPRESSIONS: 1. Minimal chronic appearing periventricular white matter ischemic type changes.
--- NOTE | 2019-12-14 13:42 | US ---
EXAMINATION TYPE: US carotid duplex BILAT DATE OF EXAM: 12/13/2019 COMPARISON: None CLINICAL HISTORY: F03.90 Dementia. Dementia per order. EXAM MEASUREMENTS: RIGHT: Peak Systolic Velocity (PSV) cm/sec ----- Right CCA: 80.9 ----- Right ICA: 100.4 ----- Right ECA: 78.4 ICA/CCA ratio: 1.2 RIGHT: End Diastole cm/sec ----- Right CCA: 29.2 ----- Right ICA: 43.5 ----- Right ECA: 18.9 LEFT: Peak Systolic Velocity (PSV) cm/sec ----- Left CCA: 69.9 ----- Left ICA: 92.7 ----- Left ECA: 55.0 ICA/CCA ratio: 1.3 LEFT: End Diastole cm/sec ----- Left CCA: 23.7 ----- Left ICA: 38.8 ----- Left ECA: 11.6 VERTEBRALS (direction of flow): Right Vertebral: Antegrade Left Vertebral: Antegrade Rhythm: Normal Minimal plaque seen bilateral carotid bifurcations. No elevated velocities at this time. IMPRESSION: No evidence of hemodynamically significant stenosis of the bilateral carotid arteries. Criteria for Assigning % of Stenosis / Diameter reduction (Estimation based on the indirect measurements of the internal carotid artery velocities (ICA PSV). 1. Normal (no stenosis)=ICA PSV < 125 cm/s: ratio < 2.0: ICA EDV<40 cm/s. 2. Less than 50% stenosis=ICA PSV < 125 cm/s: ratio < 2.0: ICA EDV<40 cm/s. 3. 50 to 69% stenosis=ICA PSV of 125 to 230 cm/s: ration 2.0 ? 4.0: ICA EDV 40-100 cm/s. 4. Greater than 70% stenosis to near occlusion= ICA PSV > 230 cm/s: ratio > 4.0: ICA EDV > 100 cm/s. 5. Near occlusion= ICA PSV velocities may be low or undetectable: variable ratio and ICA EDV. 6. Total occlusion=unable to detect flow.
== END | disposition home or self-care (01) ==
LOC: RADCTMAIN 16:18
PROVIDERS: ATTEND Internal Medicine
DX: I67.82 Cerebral ischemia (principal); F03.90 Unspecified dementia, unspecified severity, without behavioral disturbance, psychotic disturbance, mood disturbance, and anxiety
CPT/HCPCS: 70450; 93880

== ENCOUNTER → 2019-12-20 | Outpatient (CLI) | payer MEDICARE, OTHER ==
--- NOTE | 2019-12-20 19:53 | MR ---
EXAMINATION TYPE: MR brain wo con DATE OF EXAM: 12/20/2019 COMPARISON: MRI brain June 23, 2017 HISTORY: Mild cognitive impairment TECHNIQUE: Multiplanar, multisequence imaging of the brain and brainstem is performed without IV cont rast. FINDINGS: Diffusion weighted images demonstrate no evidence of a recent infarct or other diffusion abnormality. There is no worrisome extra-axial fluid collection. Persistent mild to moderate ventricular and sulca l prominence. Persistent scattered foci of T2 hyperintensity seen throughout the white matter bilater ally. Approximately 70-80 scattered lesions are seen. Midline structures demonstrate normal morphology sagittal image 10. The craniocervical junction appe ars within normal limits. Normal vascular flow voids are present. The visualized sinuses are clear an d the globes are intact. Some artifact at level of left globe noted. IMPRESSION: [id number] diffuse cerebral atrophy and moderate to advanced chronic small vessel i schemic change with slight interval progression from 2018 study felt present.
== END | disposition home or self-care (01) ==
LOC: RADMRIMAIN 18:04
PROVIDERS: ATTEND Psychiatry & Neurology Neurology
DX: G31.9 Degenerative disease of nervous system, unspecified (principal); I67.82 Cerebral ischemia
CPT/HCPCS: 70551